=== PATIENT | female | born 1945 | race Caucasian/White ===

== ENCOUNTER → 2016-11-30 | Outpatient (CLI) | payer MEDICARE, OTHER ==
[~2016-11-30] MED LIST: ALTOPREV40 M1; AMARYL 4MG. TAB4 MG PO; AMLODIPINE10 M2; ASPIR-LOW81 MG; BENTYL10 M1 PO; CALCIUM 500500 M1 PO; CALCIUM LACTAT100 MG PO; CHOLESTYRAMINE PO; CHOLESTYRAMINE1 POW; KETOROLAC0.03 ML/DR OP; LISINOPRIL/HCTZ1 TA1 PO; METFORMIN1000 MG; METFORMIN1000 MG PO; NEURONTIN600 MG PO; OFLOXACIN 10 ML10 ML OP; OXYCODONE HYDROC5 MG; PANTOPRAZOLE SO20 MG; POTASSIMIN75 MG PO; PRAVACHOL40 M1 PO; PREDNISOLO OP; PROAIR HFA0.09 MG/AC IH; TRAMADOL 50MG T1 PAK PO; VERAPAMIL HYDR120 MG PO; VITAMIN D1000 IU PO; VOLTAREN50 MG PO; WELCHOL625 MG PO
--- NOTE | 2016-11-30 10:37 | RADIOLOGY REPORT PS360 ---
ARTERIAL/[id number] CLAUDICATION, hypertension, pain ORDERING PHYSICIAN: Audie Garcia MD PATIENT AGE: 71 years TECHNIQUE: Segmental pressures obtained of both right and left leg. These are compared to brachial blood pressure to yield index at each level sampled including summary GURJIT. The data sheets from the procedure are available in PACS FINDINGS Rest study only performed today No prior studies available for comparison. Blood pressures reported are in millimeters mercury. RIGHT LEG GURJIT = general 0.5. Brachial BP: 179 Thigh BP: 138 Calf BP: 84 Ankle PT: 88 Ankle DP : 92 Digit =51 LEFT LEG GURJIT = 0.6 Brachial BPD: 182 Thigh BP: 128 Calf BP: 94 Ankle PT:104 Ankle DP: 91 Digit = 42 Pulses and waveforms: Diminished IMPRESSION: Abnormal exam with low ankle brachial index on both sides and diminished waveforms and pulses consistent with moderate arterial disease. CT angiography may be of further value.
--- NOTE | 2016-12-01 14:44 | RADIOLOGY REPORT PS360 ---
History and Indications: Coronary artery disease, hypertension, diabetes, hyperlipidemia, tobacco use and family history. Procedure: Patient received a 0.4 mg of Lexiscan, resting heart rate was 67 bpm, resting blood pressure 165/77, with Lexiscan maximum heart rate achieved was 93 bpm which is less than 85% of the maximum predicted heart rate and a blood pressure was 145/65, with Lexiscan patient complained of shortness of breath. Electrocardiogram: Resting electrocardiogram showed sinus rhythm left atrial enlargement, with Lexiscan less than 1.[address] segment depression noted from the baseline EKG. Occasional premature ventricular complexes were also seen. The EKG portion of the Lexiscan is nondiagnostic. Cardiac stress and resting SPECT images: Cardiac stress and the suspect images were obtained using technetium 99 Myoview 10.8 mCi at rest and 31.2 mCi at stress, gated SPECT further analysis of segmental wall motion and calculation of the ejection fraction also done. Cardiac stress and the suspect images show uniform myocardial activity without abnormality, computer derived ejection fraction over 65% with no obvious regional wall motion abnormality, right ventricle is normal size and contractility. Conclusion: 1. The EKG portion of the Lexiscan is nondiagnostic. 2. No obvious scintigraphic evidence of reversible ischemia seen, either derived ejection fraction over 65% with no obvious regional wall motion abnormality, right ventricle is normal size and contractility. 3. Normal Lexiscan Myoview study
== END ==
LOC: RAD 07:00
DX: R94.31 Abnormal electrocardiogram [ECG] [EKG] (principal); I70.213 Atherosclerosis of native arteries of extremities with intermittent claudication, bilateral legs; I65.23 Occlusion and stenosis of bilateral carotid arteries; R06.00 Dyspnea, unspecified; E11.9 Type 2 diabetes mellitus without complications
CPT/HCPCS: A9502; J2785